=== PATIENT | male | born 1985 | race Two or more races ===

== ENCOUNTER 2021-02-06 09:06 | Emergency (ER) | payer MEDICAID ==
[~2021-02-06] VITALS: Ht 170.2 cm; Wt 102.1 kg
[2021-02-06 09:12] VITALS: BP 169/99
[2021-02-06] MEDS ORDERED: METHOCARBAMOL 500 MG TAB PO ONE (10:00)
[2021-02-06] MEDS ORDERED: IBUPROFEN 800 MG TAB PO ONE (10:00)
== END 2021-02-06 11:11 | disposition home or self-care (01) ==
LOC: ER 09:06
DX: S09.8XXA Other specified injuries of head, initial encounter (principal); M54.9 Dorsalgia, unspecified; V43.52XA Car driver injured in collision with other type car in traffic accident, initial encounter; Y93.89 Activity, other specified; Y92.89 Other specified places as the place of occurrence of the external cause; Y99.8 Other external cause status
CPT/HCPCS: 70450; 72070; 72100; 73030